=== PATIENT | female | born 1950 | race African-American/Black ===

== ENCOUNTER 2019-04-10 15:54 | Emergency (ER) | payer MEDICARE, OTHER ==
[~2019-04-10 15:54] MED LIST: ASPI-612 PO; CHOL10003 PO; DEXA4TAB PO; FERR325T14 PO; LEVO75TA5 PO; LIDO1KIT TP; LORA0.5T PO; METO-239 PO; METO10TA81 PO; NAPH15DR56 OP; NITR0.4T22 SL; ONDA4TAB12 PO; OXYC5TAB4 PO; POLY255P11 PO; POTA20TA4 PO; RANI300T PO; SPIR25TA5 PO; TORS20TA2 PO
[2019-04-10 16:07] VITALS: BP 0/0
[2019-04-10] MEDS ORDERED: MAGNESIUM SULFATE 1GM 100 ML IV ONE (18:30)
[2019-04-10] MEDS ORDERED: AMIODARONE 150 MG/3 ML VIAL IVP ONE (18:30)
[2019-04-10] MEDS ORDERED: EPINEPHrine SYRINGE 1 MG/10 ML SYRINGE IV ONE ×4 (18:30)
--- NOTE | 2019-04-10 19:10 | PHYS DOC ---
Past Medical History Past Medical History: CAD, Cancer Additional Past Medical Histor: BREAST CANCER,HODGKINS LYMPHOMA CX, STOMACH CX Past Medical History Limited due to cardiopulmonary arrest Past Surgical History: Coronary Bypass Surgery Additional Past Surgical Histo: CARDIAC STENTS Past Surgical History Limited due to cardiopulmonary arrest Smoking Status: Never Smoker Alcohol Use: None Drug Use: None Social History Limited due to cardiopulmonary arrest Adult General Chief Complaint Chief Complaint: CPR/FULL ARREST HPI HPI 69 year old female presents via EMS with report of cardiopulmonary arrest at home. EMS reports history of "end stage cancer" for which patient was recently placed on hospice on 03/30/19. 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 EMS reports patient initially in asystole. ACLS initiated by EMS. EMS reports giving 4 rounds of epi and defibrillating x 2 after patient converted from asystole to Vtach and then Vfib. Patient also given bicarb per EMS. Reports last rhythm checked prior to arrival was PEA. Glucose normal per EMS. 7.0 cuffed ETT also placed by EMS prior to arrival. HPI limited due to cardiopulmonary arrest. Review of Systems Review of Systems Review of systems limited due to cardiopulmonary arrest Current Medications Current Medications Current Medications Medications (Trade) Dose Ordered Sig/Jean Claude Start Time Stop Time Status Last Admin Dose Admin Amiodarone HCl (Cordarone) 300 mg 1X ONCE 04/10/19 18:30 04/10/19 18:37 DC 04/10/19 16:07 300 MG Epinephrine HCl (EPINEPHrine SYRINGE) 1 mg 1X ONCE 04/10/19 18:30 04/10/19 18:37 DC 04/10/19 16:10 1 MG Magnesium Sulfate/ Dextrose 100 ml @ 100 mls/hr 1X ONCE 04/10/19 18:30 04/10/19 19:29 DC 04/10/19 16:07 100 MLS/HR Allergies Allergies Allergies Coded Allergies Type Severity Reaction Last Updated Verified lisinopril Allergy Severe SWELLING 01/13/18 Yes allopurinol Allergy Mild C/O HAIRLOSS 01/13/18 Yes atorvastatin Allergy Mild ABD. CRAMPS 01/13/18 Yes pitavastatin Allergy Mild C/O HAIR LOSS 01/13/18 Yes simvastatin Allergy Mild N/V 01/13/18 Yes Physical Exam Physical Exam Constitutional: Cachetic, ill appearing elderly female HENT: Normocephalic, atraumatic, oropharynx dry, ETT in place with bloody sputum in ETT noted Eyes: Conjunctiva normal, no discharge, pupils dilated and nonreactive Neck: Supple, no crepitence Cardiovascular: No spontaneous heart sounds on auscultation, no central pulse noted to right carotid or right femoral on palpation Lungs & Thorax: Bilateral breath sounds coarse R>L with bag valve mask, p ositive ETCO2 monitor Abdomen: Soft, with epigastric hard mass appreciated Skin: Cool, dry, no rash Extremities: No deformity, no edema Neurologic: Unresponsive, GCS 3 Current Patient Data Vital Signs Vital Signs Date Time Temp Pulse Resp B/P (MAP) Pulse Ox O2 Delivery O2 Flow Rate FiO2 04/10/19 16:07 0 0/0 EKG EKG [] Radiology/Procedures Radiology/Procedures [] Course & Med Decision Making Course & Med Decision Making Patient presents via EMS in cardiopulmonary arrest. Hx of metastatic stomach cancer to liver, lungs, and pancreas. Patient currently on hospice but apparently FULL CODE. train controller present during continued resuccitation efforts. ACLS continued from EMS. ETT already in place. Blood sputum noted likely from lung contusion/rib fx during CRP. Patient noted to initially be in PEA. Epi x 4 given in ED. Patient did convert to Vfib x 3 episodes for which patient received 200J biphasic defibrillation x 3. Patient also received 300mg of Amiodarone and 1 gram of Mag. Patient continued without pulse and finally was noted to be in asystole with no cardiac activity on bedside ultrasound at approximately 55 min down. Time of therefore called. Discussed outcome with family, who acknowledge understanding. Attempted to notified patient's oncologist, Dr. Baires who has been actively treating patient despite hospice. Discussed with solution analyst physician for group, Dr. Leela Crain. Dr. Crain reports that Dr. Baires would likely sign certificate. Dragon Disclaimer Dragon Disclaimer This electronic medical record was generated, in whole or in part, using a voice recognition dictation system. Departure Departure Impression: Primary Impression: Cardiopulmonary arrest Additional Impression: Hx of malignant neoplasm Disposition: 20 Condition: Referrals: JERRY CAMPOS (PCP) Critical Care Time Critical care time was [30] minutes exclusive of procedures. Problem Qualifiers LIU PITTS DO Apr 10, 2019 19:10
== END 2019-04-10 19:13 | disposition expired ==
LOC: ER 15:54
DX: I46.9 Cardiac arrest, cause unspecified (principal); I25.10 Atherosclerotic heart disease of native coronary artery without angina pectoris; Z98.890 Other specified postprocedural states; Z85.3 Personal history of malignant neoplasm of breast; Z85.028 Personal history of other malignant neoplasm of stomach; Z88.8 Allergy status to other drugs, medicaments and biological substances; Z79.899 Other long term (current) drug therapy
CPT/HCPCS: 92950; 96365; 96375; 99291; J0171; J0282; J3475